=== PATIENT | female | born 1940 | race Caucasian/White ===

== ENCOUNTER 2024-04-22 00:10 | Emergency (ER) | payer MEDICARE, SELFPAY ==
[2024-04-22] VITALS (77 sets, daily range): BP systolic 95–151; BP diastolic 32–89; PULSE 72–83; RESP 18; TEMP 36.6; O2SAT 86–99
--- NOTE | 2024-04-22 00:07 | W.ED.GENAD ---
Discharge Plan Disposition Patient Disposition: Transfer-Acute Inpatient Care Specific Acute Inpt Facility: [facility] Condition: Stable Discharge Details Clinical Impression: Closed right hip fracture Primary Care Provider: VanessaLocal ED Provider: Lorenzo Casanova and New Rx's Prescriptions: No Action Imbruvica 420 mg tablet 420 mg PO DAILY omeprazole 40 mg capsule,delayed release(DR/EC) 40 mg PO DAILY losartan-hydrochlorothiazide 100-12.5 mg tablet 1 tab PO DAILY levothyroxine 125 mcg capsule 125 mcg PO DAILY ferrous sulfate 27 mg iron tablet 65 mg PO DAILY HPI General Mode of arrival: EMS. Date/Time Provider Initiated Documentation: 04/22/24 00:19. Limitations to Documentation: no limitations. Information obtained by: patient and RN notes reviewed. HPI Narrative: Patient presents to ED status post fall with right hip pain. Patient reports going down just 2 steps, but she missed stepped and fell landing on her right hip. She had immediate pain and was unable to get up. She denies any syncope or fainting before the event. She denies striking her head or loss of consciousness. She has no neck pain, chest pain, shortness of breath, back pain. Only complaint is of right hip pain. She did receive fentanyl en route for her pain. Related Data Home Medications ?Medication ?Instructions ?Recorded ?Confirmed ferrous sulfate 27 mg iron tablet 65 mg PO DAILY 04/22/24 04/22/24 ibrutinib 420 mg tablet (Imbruvica) 420 mg PO DAILY 04/22/24 04/22/24 levothyroxine 125 mcg capsule 125 mcg PO DAILY 04/22/24 04/22/24 losartan 100 1 tab PO DAILY 04/22/24 04/22/24 mg-hydrochlorothiazide 12.5 mg tablet omeprazole 40 mg capsule,delayed 40 mg PO DAILY 04/22/24 04/22/24 release Allergies Allergy/AdvReac Type Severity Reaction Status Date / Time No Known Allergies Allergy Unverified 04/22/24 00:15 Review of Systems Narrative: Per HPI Exam Narrative Exam Narrative: Const: WDWN elderly female in NAD. VS per triage. HEENT: NC/AT. Normal facial exam. Neck: Supple. Trachea midline. No midline tenderness. Lungs: Normal respiratory effort. Lungs are clear. No chest wall tenderness. Cor: RRR with loud murmur. Good radial pulses. GI: Soft/ND/NT. Neuro: A+O x 3. Normal speech, mentation. Cranial nerves II - XII grossly intact. No gross motor or sensory deficit. Ext: No C/C/E. RLE is shortened with extreme pain in hip with any movement. NVI distal. LLE normal. Pelvis stable. Medical Decision Making Patient presenting to ED status post fall with right hip pain. Patient is visiting from [place]. She denies any presyncope or syncope. She denies any head injury. She does report severe for which they are considering TAVR. IV is in place and she has received fentanyl en route. Clinically appears to have a right hip fracture which is isolated. Will continue pain control. Laboratory studies and x-rays ordered. Laboratory studies show a white count of 22.5 in keeping with her history of CLL. Her hemoglobin is low normal at 11.2. Chemistries unremarkable other than evidence of renal insufficiency with a BUN of 45 and a creatinine 1.7. I have no baseline for comparison. Liver function is normal. X-rays read by me confirm comminuted intertrochanteric/subtrochanteric fracture on the right. 1 view chest x-ray suggest some increased interstitial markings. Again no old for comparison. Saturations on room air remain normal. Her EKG is sinus rhythm with left axis deviation and some lateral ST changes. These findings likely related to her severe . Discussed x-ray findings with patient and family. They did inquire about transport back home to [place]. Unfortunately, this is very expensive as it would be private pay. Therefore, recommendation for management at [facility] or [facility] was made. There is no orthopedic coverage tonight or the rest of the weekend here. Will begin the process of arranging for transfer. Will place patient on 100 mL/h of saline. Will continue to control pain as necessary. Moe catheter placed for comfort. [facility] is currently at capacity and cannot accept the patient. [facility] has accepted patient to the ED by Dr. Turner. Patient will be transferred by ambulance this morning. Patient and family updated. Imaging Data Radiologic Study: Attestation: I personally reviewed and interpreted this imaging study as follows: Imaging: X-Ray My impression: see [facility] Lab Data Lab results reviewed: Yes I reviewed the patient's lab results. ECG Data Attestation: I personally reviewed and interpreted this ECG (s) as follows: Prior ECG tracings: not available for review Interpretation: see EKG/MDM PFS All Active Problems (Updated 04/22/24 @ 04:48 by Lorenzo Casanova MD) Closed right hip fracture (Acute) Medical History CLL (chronic lymphocytic leukemia) Hypothyroid HTN (hypertension) Aortic stenosis Surgical History Hx of tonsillectomy Social History Smoking/Tobacco Use Status: Never Smoking risk assessment performed?: Yes Alcohol Intake: never Drug use: Never Substance use type: does not use
--- NOTE | 2024-04-22 00:15 | DI.RAD_ITS ---
Exam(s) XR FEMUR RT XR HIP RT COMPLETE AP PELVIS EXAM: XR HIP RT COMPLETE AP PELVIS and XR femur RT CLINICAL HISTORY: fall/hip pain. TECHNIQUE: 2D digital imaging was performed of the right femur and hip. Seven images were obtained. AP pelvis and lateral right hip views were obtained. COMPARISON: There are no priors for comparison. FINDINGS: BONES: There is an acute comminuted intertrochanteric fracture of the right femur. There is loss of the normal femoral neck angle. The distal femur is intact. No bony destructive lesion is seen. JOINTS: No dislocation present. The sacroiliac joints are intact as is the symphysis pubis. SOFT TISSUE: Vascular calcifications are present. IMPRESSION: 1. There is an acute comminuted intertrochanteric fracture of the right femur as described above. 2. No evidence of a fracture of the distal femur. 3. No dislocation. DATA REPOSITORY: RADIATION DOSE DELIVERED:
--- NOTE | 2024-04-22 00:15 | RT.EKG_ITS ---
APPROVED REPORT Exam: Resting ECG Reason for Exam: pre-op hip Patient Location: E HR:81 bpm ECG Measurements Heart Rate 81 AXIS ME 191 P 68 QRSd 80 QRS -39 QT 411 T 108 QTc 478 Conclusion Sinus rhythm...normal P axis, V-rate 60- 99 Atrial premature complex...SV complex w/ short R-R interval Left axis deviation...QRS axis (-30,-90) Abnormal T, consider ischemia, lateral leads...T <-0.20mV, I aVL V5 V6 I have reviewed and interpreted ECG and agree with software generated interpretation.
--- NOTE | 2024-04-22 00:15 | DI.RAD_ITS ---
Exam(s) XR CHEST 1V IN DI DEPT EXAM: XR CHEST 1V IN DI DEPT CLINICAL HISTORY: fall/trauma TECHNIQUE: 2D digital imaging was performed of the chest. One image was obtained. An AP view was ob tained. COMPARISON: No exams were available for comparison FINDINGS: MEDIASTINUM: Normal. HEART: Cardiomegaly PULMONARY VASCULATURE: Mild prominence of the pulmonary vasculature. LUNGS: No focal consolidating infiltrates. PLEURAL SPACE: No pleural effusion or pneumothorax. BONE:Within normal limits for the patient's age. OTHER FINDINGS:Normal. IMPRESSION: Mild cardiomegaly. Pulmonary venous congestion. DATA REPOSITORY: RADIATION DOSE DELIVERED:
[2024-04-22] MEDS: MORPHine 10 MG/ML VIAL 4 MG IVP ×6 (00:48→07:32)
[2024-04-22] MEDS: Ondansetron 4 MG/2 ML VIAL IVP ×2 (00:49→07:30)
[2024-04-22 01:20] LABS: HCT 34.7 % (36.0-46.0); HGB 11.2 g/dL (11.2-15.7); MCH 29.3 pg (27.0-33.0); MCHC 32.3 % (32.0-36.0); MCV 91 fL (80-95); MPV 11.4 fL (8.0-11.0); Platelet Count 323 10^3/uL (130-400); RBC 3.82 10^6/uL (3.93-5.22); RDW 14.6 % (11.7-14.6); RDW-SD 48.6 fL; WBC 22.48 10^3/uL (4.4-10.8)
[2024-04-22 01:46] LABS: ALT 17 U/L (14-59); AST 25 U/L (15-37); Albumin 3.4 g/dL (3.4-5.0); Alkaline Phosphatase 76 U/L (46-116); Anion Gap 8.8 mmol/L (3-11); BUN 45 mg/dL (7-18); Bilirubin, Total 0.83 mg/dL (0.2-1.0); CO2 22.2 mmol/L (21.0-32.0); CREATININE 1.7 mg/dL (0.55-1.02); Chloride 102 mmol/L (98-107); Estimated GFR 29.21 (mL/min/1.73m2); Glucose 111 mg/dL (74-106); Potassium 4.1 mmol/L (3.5-5.1); Sodium 133 mmol/L (136-145); Total Protein 8.2 g/dL (6.4-8.2)
--- NOTE | 2024-04-22 02:23 | DI.VRAD_ITS ---
PROCEDURE INFORMATION: Exam: XR Right Femur Exam date and time: 04/22/2024 1:06 AM Age: 83 years old Clinical indication: Injury or trauma; Blunt trauma; Thigh or upper leg; Right; Injury details: Fall/trauma TECHNIQUE: Imaging protocol: Radiologic exam of the right femur. Views: 2 views. COMPARISON: CR XR HIP RT COMPLETE AP PELVIS 04/22/2024 1:05 AM FINDINGS: Bones/joints: Acute comminuted intertrochanteric femur fracture. Soft tissues: Unremarkable. IMPRESSION: Acute comminuted intertrochanteric femur fracture. Dictated and Authenticated by: Kwaku Nunez MD. Ordering:PAM Ventura MD
--- NOTE | 2024-04-22 02:24 | DI.VRAD_ITS ---
PROCEDURE INFORMATION: Exam: XR Chest Exam date and time: 04/22/2024 1:21 AM Age: 83 years old Clinical indication: Injury or trauma; Blunt trauma (contusions or hematomas); Injury details: Fall/trauma TECHNIQUE: Imaging protocol: Radiologic exam of the chest. Views: 1 view. COMPARISON: No relevant prior studies available. FINDINGS: Lungs: Mild diffuse prominence/indistinctness of the pulmonary vascular interstitial suggest hydrostatic interstitial pulmonary edema/CHF. No focal airspace opacity. Pleural spaces: Unremarkable. No pleural effusion. No pneumothorax. Heart/Mediastinum: Unremarkable. No cardiomegaly. Bones/joints: Unremarkable. IMPRESSION: Mild diffuse prominence/indistinctness of the pulmonary vascular interstitial suggest hydrostatic interstitial pulmonary edema/CHF. Dictated and Authenticated by: Kwaku Nunez MD. Ordering:PAM Ventura MD
--- NOTE | 2024-04-22 02:26 | DI.VRAD_ITS ---
PROCEDURE INFORMATION: Exam: XR Right Hip Exam date and time: 04/22/2024 1:05 AM Age: 83 years old Clinical indication: Injury or trauma; Blunt trauma (contusions or hematomas); Right; Hip; Injury details: Fall/trauma TECHNIQUE: Imaging protocol: Radiologic exam of the right hip. Views: 2 or 3 views hip with pelvis when performed. COMPARISON: No relevant prior studies available. FINDINGS: Bones/joints: Comminuted intratrochanteric right femur fracture. Soft tissues: Unremarkable. IMPRESSION: Comminuted intratrochanteric right femur fracture. Dictated and Authenticated by: Kwaku Nunez MD. Ordering:PAM Ventura MD
[2024-04-22] MEDS: ACETAMINOPHEN 1,000 MG/100 ML BTL 400 MG IVPB (03:31)
--- OUTSIDE RECORDS SUMMARY | 2024-04-22 03:58 | XMS_ITS | Clinical Summary ---
Author Organization [facility] Address [address] [place] [id number] Care Team Providers Care Billing Machine Operator Name Role Phone César Lantigua MD Primary Care Provider [phone] Allergies No known active allergies Medications Medication Sig Dispensed Refills Start Date End Date Status IMBRUVICA 420 mg tablet Take 420 mg by mouth daily 0 03/05/2022 Active levothyroxine (SYNTHROID) 112 mcg tablet Take by mouth daily 0 Activ e losartan-hydroCHLOROt hiazide (HYZAAR) 100-12.5 mg tablet Take 1 tablet by mouth daily 0 03/18/[address] (PriLOSEC) 40 mg capsule Take 40 mg by mouth daily before breakfast 0 Active ferrous sulfate 325 (65 FE) MG tablet Take 325 mg by mouth daily with breakfast 0 Active VITAMIN D 1 DAY Take 1 capsule by mouth daily 0 Active Social History Tobacco Use Types Packs/Day Years Used Date Smoking Tobacco: Former Smokeless Tobacco: Never Comments:smoked lightly 60 y ears ago Alcohol Use Standard Drinks/Week Comments Yes 0 (1 standard drink = 0.6 oz pur e alcohol) occational Sex and Gender Information Value Date Recorded Sex Assigned at Not on file Gender Identity Not on file Sexual Orientation Not on file Last Filed Vital Signs Vital Sign Reading Time Taken Comments Blood Pressure 96/53 09/23/2022 3:00 PM EST Pulse 84 09/23/2022 3:00 PM EST Temperature 36.5 ??C (97.7 ??F) 09/23/2022 3:00 PM ES T Respiratory Rate 18 03/23/2022 9:07 AM EDT Oxygen Saturation - - Inhaled Oxygen Concentration - - Weight 55.2 kg (121 lb 12.8 oz) 03/23/2022 9:07 AM EDT Height 157.5 cm (5' 2) 03/23/2022 9:07 AM EDT Body Mass Index 22.28 03/23/2022 9:07 AM EDT Plan of Treatment Health Maintenance Due Date Last Done Comments Medicare Annual Wellness Visit 1938 [employer] ANNUAL DEPRESSION SCREENING 1950 [employer] BLOOD PRESSURE 140/ 90 OR UNDER 1956 [employer] TOBACCO CESSATION COUNSELING 1956 Fall Risk Screening 1956 [employer] ACCESS TO PREVENTIVE/AMBULATORY VISIT 1958 Shingrix Vaccine (#1) 1988 RSV Vaccine Needed (1 - 1-do se 60+ series) 1998 [employer] FALL RISK SCREENING 12/29/2003 PNEUMOCOCCAL VACCINE AGE 65+ (1 of 1 - PCV) 12/29/2003 COLOGUARD 2014 FIT (Fecal Immunochemical Test) 2014 FOBT 2014 SIGMOIDOSCOPY 2014 INFLUENZA VACCINE 02/24/2024 COVID VACCINE ( season) 2024 12/15/2021, 04/03/2021, 09/14/2020, Additional history exists BREAST CANCER SCREENING Discontinued COLONOSCOPY Discontinued COLORECTAL CANCER SCREENING Discontinued Cervical Cancer Discontinued Goals Goal Patient Goal Type Associated Problems Recent Progress Patient-Stated? Author Infusion - Potential for Injury/Reaction Infusion On track( 023 3:19 PM EST) No Bre Louise, RN Note: Goal: Free from treatment reactions Interventions: Baseline assessment , Baseline vital signs & as needed, and Assess for reaction Care Teams Billing Machine Operator Relationship Specialty Start Date End Date César Lantigua MD [address] [place] [address] PCP - General Family Medicine 03/20/22
--- OUTSIDE RECORDS SUMMARY | 2024-04-22 03:58 | XMS_ITS | Encounter Summary ---
Author Organization [facility] Address [address] [place] [address] Care Team Providers Care Technical Business Analyst Name Role Phone César Lantigua MD Primary Care Provider [phone] Reason for Visit * Reason Comments Blood Transfusion Encounter Details Date Type Department Care Team (Latest Contact Info) Description 09/23/2022 8:52 AM EST - 09/23/2022 11:59 PM EST Hospital Encounter [facility] [address] [place] [address] Anemia, unspecified type [D64.9] Discharge Disposition: Home or Self Care Social History Tobacco Use Types Packs/Day Years Used Date Smoking Tobacco: Former Smokeless Tobacco: Never Comments:smoked lightly 60 y ears ago Alcohol Use Standard Drinks/Week Comments Yes 0 (1 standard drink = 0.6 oz pur e alcohol) occational Sex and Gender Information Value Date Recorded Sex Assigned at Not on file Gender Identity Not on file Sexual Orientation Not on file documented as of this encounter Last Filed Vital Signs Vital Sign Reading Time Taken Comments Blood Pressure 96/53 09/23/2022 3:00 PM EST Pulse 84 09/23/2022 3:00 PM EST Temperature 36.5 ??C (97.7 ??F) 09/23/2022 3:00 PM ES T Respiratory Rate - - Oxygen Saturation - - Inhaled Oxygen Concentration - - Weight - - Height - - Body Mass Index - - documented in this encounter Discharge Instructions * Attachments The following attachments cannot be sent through Care Everywhere. * Blood Transfusion ([place] Citizen) documented in this encounter Medications at Time of Discharge Medication Sig Dispensed Refills Start Date End Date ferrous sulfate 325 (65 FE) MG tablet Take 325 mg by mouth daily with breakfast 0 IMBRUVICA 420 mg tablet Take 420 mg by mouth daily 0 03/05/2022 levothyroxine (SYNTHROID) 112 mcg tablet Take by mouth daily 0 losartan-hydroCHLOROthia zide (HYZAAR) 100-12.5 mg tablet Take 1 tablet by mouth daily 0 03/18/[address] (PriLOSEC) 40 mg capsule Take 40 mg by mouth daily before breakfast 0 VITAMIN D 1 DAY Take 1 capsule by mouth daily 0 documented as of this encounter Progress Notes * Christopher Moses RN - 09/23/2022 9:00 AM EST Reason for Visit: Blood Transfusion Vitals: 09/23/22 1001 09/23/22 1016 09/23/22 1230 09/23/22 1248 BP: 93/48 93/51 93/49 93/49 Temp: 36.6 ??C (97.8 ??F) 36.6 ??C (97.8 ??F) 37 ??C (98.6 ??F) 37 ??C (98.6 ??F) TempSrc: Temporal Pulse: 68 68 75 75 Pulse Source: Monitor Heart Rate: 68 68 75 75 Heart Rate Source: Monitor 09/23/22 1303 09/23/22 1500 BP: 125/68 96/53 Temp: 36.9 ??C (98.5 ??F) 36.5 ??C (97.7 ??F) TempSrc: Pulse: 83 84 Pulse Source: Heart Rate: 83 84 Heart Rate Source: Medications Given - No data to display Infusion Visit Type: Blood Transfusion - Patient tolerated transfusion well. Instructed to call MD if any problems. - Blood consent obtained: Yes - End volume documented: Yes - Transfusion marked complete: Yes Treatment tolerated: Yes Chair area free from clutter: Yes Chair in upright position: Yes Discharge to: Self Discharged via: Ambulatory . documented in this encounter Plan of Treatment Not on file documented as of this encounter Goals Goal Patient Goal Type Associated Problems Recent Progress Patient-Stated? Author Infusion - Potential for Injury/Reaction Infusion On track( 023 3:19 PM EST) No Bre Louise RN Note: Goal: Free from treatment reactions Interventions: Baseline assessment , Baseline vital signs & as needed, and Assess for reaction documented as of this encounter Procedures Procedure Name Priority Date/Time Associated Diagnosis Comments TRANSFUSE RED BLOOD CELLS Routine 09/23/2022 12:48 PM EST Anemia, unspecified type TRANSFUSE RED BLOOD CELLS Routine 09/23/2022 10:01 AM EST Anemia, unspecified type documented in this encounter Results * Transfuse RBC (09/23/2022 3:32 PM EST) Elaina Nguyen MD BLOOD TRANSFUSION OR DERABLES Performing Organization Address City/[facility] Co de Phone Number [employer] * Transfuse RBC (09/23/2022 3:32 PM EST) Elaina Nguyen MD BLOOD TRANSFUSION OR DERABLES * Transfuse RBC (09/23/2022 3:27 PM EST) Elaina Nguyen MD BLOOD TRANSFUSION OR DERABLES Performing Organization Address City/[facility]/ZIP Co de Phone Number [employer]ithila[employer]at [employer] [employer] documented in this encounter Visit Diagnoses Diagnosis Anemia, unspecified type documented in this encounter Care Teams Technical Business Analyst Relationship Specialty Start Date End Date César Lantigua MD [address] [place] [address] PCP - General Family Medicine 03/20/22 documented as of this encounter
--- OUTSIDE RECORDS SUMMARY | 2024-04-22 03:59 | XMS_ITS | Encounter Summary ---
Author Organization [facility] Address [address] [place] [address] Care Team Providers Care High Speed Warper Tender Name Role Phone César Lantigua MD Primary Care Provider [phone] Encounter Details Date Type Department Care Team (Late st Contact Info) Description 03/20/2022 Orders Only [facility] [address] [place] [id number] Elaina Nguyen MD [address] [place] [address] Anemia, unspecified type (Primary Dx) [D64.9] Social History Tobacco Use Types Packs/Day Years Used Date Smoking Tobacco: Never Assessed Sex and Gender Information Value Date Recorded Sex Assigned at Not on file Gender Identity Not on file Sexual Orientation Not on file documented as of this encounter Plan of Treatment Pending Results Name Type Priority Associated Diagnoses Date /Time Prepare red blood cells Blood Bank Routine Anemia, unspecified type 03/20/2022 3:01 PM EDT documented as of this encounter Goals Goal Patient Goal Type Associated Problems Recent Progress Patient-Stated? Author Infusion - Potential for Injury/Reaction Infusion On track( 023 3:19 PM EST) No Bre Louise, RN Note: Goal: Free from treatment reactions Interventions: Baseline assessment , Baseline vital signs & as needed, and Assess for reaction documented as of this encounter Results * Type and screen (03/20/2022 3:01 PM EDT) ABO Typing A 03/20/2022 4:19 PM EDT [facility] RH Type POS 03/20/2022 4:19 PM EDT [facility] Antibody Screen NEG 4:19 PM EDT [facility] Type & Screen Expiration 03/23/2022 23:59 03/20/2022 4:19 PM EDT [facility] Blood Non-Lab Draw / Unknown 03/20/2022 3:01 PM EDT 03/20/2022 3:12 PM EDT Comment:Add'l Desc: Elaina Nguyen MD BLOOD BANK TEST SWAPNA BOWLES [facility] [address] [place] [address], [facility] [address] [place] [address] documented in this encounter Visit Diagnoses Diagnosis Anemia, unspecified type- Primary documented in this encounter Care Teams High Speed Warper Tender Relationship Specialty Start Date End Date César Lantigua MD [address] [place] [address] PCP - General Family Medicine 03/20/22 documented as of this encounter
--- OUTSIDE RECORDS SUMMARY | 2024-04-22 03:59 | XMS_ITS ---
Author Organization [facility] Address [address] [place] [address] Care Team Providers Care Nuclear Security Officer Name Role Phone Donovan Manuel Unavailable [phone] ANANYA DELGADO, DONOVAN Unavailable Unavailable Sara Merino Unavailable REASON FOR VISIT PT [facility] MCR L ARM - REF BY DR. MANUEL SOCIAL HISTORY Sex Assigned At : Social History Observation Description Sex Assigned At Female Encounters Encounter Location Date Provider Diagnosis [facility] [employer] - [address] [place] [address] 04/07/2024 Sara Merino PLAN OF TREATMENT Next Appt Details Provider Name:Donovan Manuel, 02:30:00 PM, [address] [facility] [facility] [address], [place], [address],
--- OUTSIDE RECORDS SUMMARY | 2024-04-22 03:59 | XMS_ITS | Encounter Summary ---
Author Organization [facility] Address [address] [place] [address] Care Team Providers Care Concrete Curer Name Role Phone César Lantigua MD Primary Care Provider [phone] Reason for Visit * Reason Comments Blood Transfusion Encounter Details Date Type Department Care Team (Latest Contact Info) Description 03/23/2022 8:54 AM EDT - 03/23/2022 11:59 PM EDT Hospital Encounter [facility] [address] [place] [phone] Anemia, unspecified type (Primary Dx) [D64.9] Discharge Disposition: Home or Self Care [...] Sign Reading Time Taken Comments Blood Pressure 100/61 03/23/2022 12:26 PM EDT Pulse 75 03/23/2022 12:26 PM EDT Temperature 36.2 ??C (97.2 ??F) 03/23/2022 1 2:26 PM EDT Respiratory Rate 18 03/23/2022 9:07 AM EDT Oxygen Saturation - - Inhaled Oxygen Concentration - - Weight 55.2 kg (121 lb 12.8 oz) 03/23/2022 9:07 AM EDT Height 157.5 cm (5' 2) 03/23/2022 9:07 AM EDT Body Mass Index 22.28 03/23/2022 9:07 AM EDT documented in this encounter Discharge Instructions * Patient Instructions* Bre Louise RN - 03/23/2022 9:00 AM EDT POST BLOOD AND BLOOD PRODUCTS ADMINISTRATION, EDUCATION AND PATIENT INSTRUCTION SHEET PURPOSE: To provide you and your family with guidelines about when to call your physician after having received blood or a blood product. The transfusion you received today was: PACKED RED BLOOD CELLS NOTIFY YOUR PHYSICIAN IF YOU EXPERIENCE THE FOLLOWING SYMPTOMS: POSSIBLE ALLERGIC REACTION: rash, redness of skin, itching or signs of SEVERE reaction such as feeling your throat closing or unable to breathe. FEVER: shaking chills and/or fever greater than 100.4??F. FLUID OVERLOAD: Tightness in chest, dry cough, excess fluid in lungs or wheezing sound when breathing. LATE REACTION: May occur up to one week after transfusion: jaundice (yellowing of skin and white ofeyes), fever, blood in urine, unexplained anemia. OTHER: You may resume a normal diet and activity as tolerated. If you have any questions, please call your physician. documented in this encounter Medications at Time [...] as of this encounter Progress Notes * Bre Louise RN - 03/23/2022 9:00 AM EDT Reason for Visit: Blood Transfusion Vitals: 03/23/22 0907 03/23/22 0949 03/23/22 1004 03/23/22 1226 BP: 126/83 124/82 113/63 100/61 Temp: 36.2 ??C (97.2 ??F) 36.5 ??C (97.7 ??F) 36.4 ??C (97.5 ??F) 36.2 ??C (97.2 ??F) TempSrc: Temporal Resp: 18 Pulse: 72 72 72 75 Height: 157.5 cm (62) Weight: 55.2 kg (121 lb 12.8 oz) Heart Rate: 72 72 72 75 BMI (CALCULATED): 22.3 BSA (Calculated - sq m): 1.55 sq meters Medications Given - No data to display Infusion Visit Type: Blood Transfusion - Patient tolerated transfusion well. Instructed to call MD if any problems. - Blood consent obtained: Yes - End volume documented: Yes - Transfusion marked complete: Yes Treatment tolerated: Yes Chair area free from clutter: Yes Chair in upright position: Yes Discharge to: Family Discharged via: Ambulatory . documented in this [...] Diagnosis Comments TRANSFUSE RED BLOOD CELLS Routine 03/23/2022 9:49 AM EDT Anemia, unspecified type documented in this encounter Results * Transfuse RBC (03/23/2022 12:28 PM EDT) Elaina Nguyen MD BLOOD TRANSFUSION OR DERABLES [facility] * Transfuse RBC (03/23/2022 12:28 PM EDT) Elaina Nguyen MD BLOOD TRANSFUSION OR DERABLES documented in this encounter Visit Diagnoses Diagnosis Anemia, unspecified type- Primary documented in this encounter Care Teams Concrete Curer Relationship Specialty Start Date End Date César Lantigua MD [address] [place] [address] PCP - General Family Medicine 03/20/22 documented as of this encounter
--- OUTSIDE RECORDS SUMMARY | 2024-04-22 03:59 | XMS_ITS | Encounter Summary ---
Author Organization [facility] Address [address] [place] [address] Care Team Providers Care Regrind Mill Operator Name Role Phone César Lantigua MD Primary Care Provider [phone] Reason for Visit * Reason Comments Other Type and screen Encounter Details Date Type Department Care Team (Latest Contact Info) Description 09/21/2022 12:02 PM EST - 09/21/2022 11:59 PM EST Hospital Encounter [facility] [address] [place] [phone] Anemia, unspecified type [D64.9] Discharge Disposition: Home [...] Sign Reading Time Taken Comments Blood Pressure - - Pulse - - Temperature 36.2 ??C (97.2 ??F) 09/21/2022 12:[address] Respiratory Rate - - Oxygen Saturation - - Inhaled Oxygen Concentration - - Weight - - Height - - Body Mass Index - - documented in this encounter Medications at Time [...] as of this encounter Progress Notes * John Hanson RN - 09/21/2022 12:15 PM EST Reason for Visit: Other (Type and screen) Vitals: 09/21/22 1237 Temp: 36.2 ??C (97.2 ??F) TempSrc: Temporal Medications Given - No data to display Infusion Visit Type: Pt arrived ambulatory for blood work. Blood sample obtained via butterfly needle in left A/C. Gauze and coban applied. Treatment tolerated: Yes Chair area free from clutter: Yes Chair in upright position: Yes Discharge to: Self Discharged via: Ambulatory . documented in this encounter Plan of Treatment Pending Results Name Type Priority Associated Diagnoses Date /Time Prepare red blood cells Blood Bank STAT 09/21/2022 12:30 PM EST documented as of this encounter Goals Goal [...] Procedure Name Priority Date/Time Associated Diagnosis Comments PREPARE RED BLOOD CELLS STAT 09/21/2022 12:30 PM EST TYPE AND SCREEN STAT 09/21/2022 12:30 PM EST Anemia, unspecified type documented in this encounter Results * Type and screen (09/21/2022 12:30 PM EST) ABO Typing A 09/21/2022 1:30 PM EST [facility] Type POS 09/21/2022 1:30 PM EST [facility] Antibody Screen NEG 1:30 PM EST [facility] Type & Screen Expiration 09/24/2022 23:59 09/21/2022 1:30 PM EST [facility] Blood Non-Lab Draw / Unknown 09/21/2022 12:30 PM EST 09/21/2022 12:40 PM EST Comment:Add'l Desc: Elaina Nguyen MD BLOOD BANK TEST SWAPNA BOWLES [facility] Organization Address City/State/ZIP Co de Phone Number [facility] [address] [place] [address], [facility] [address] [place] [address] documented in this encounter Visit Diagnoses Diagnosis Anemia, unspecified type documented in this encounter Care Teams Regrind Mill Operator Relationship Specialty Start Date End Date César Lantigua MD [address] [place] [address] PCP - General Family Medicine 03/20/22 documented as of this encounter
--- OUTSIDE RECORDS SUMMARY | 2024-04-22 03:59 | XMS_ITS ---
Author Organization [facility] Address [address] [place] [id number] Care Team Providers Care Jig Fitter Name Role Phone Lawson Lantigua Unavailable [phone] Jose Gao DPM Unavailable Unavailable Migration, Provider Unavailable Unavailable Allergies No Known Allergies REASON FOR VISIT EMR-Devin Medications Medication SIG (Take, Route, Frequency, Duration) Notes Start Date End Date Status losartan-hydrochlorot hiazide 100-12.5 mg oral for 90 *Reorder from [facility] for eRx and Interaction Alerts* 04/16/2021 Active Vitamin D3 10 MCG (400 UNIT) Oral for 0 01/28/2022 Active Multivitamin - Oral for 0 01/28/2022 Act martita Imbruvica 420 MG Oral for 0 01/28/2022 A ctive Levothyroxine 125 mcg oral for 90 *Reorder f rom [facility] for eRx and Interaction Alerts* 02/25/2021 Active Omeprazole 40 mg oral for 90 *Pick strength- form from [facility] for eRX* 02/13/2021 Active Encounters Encounter Location Date Provider Diagnosis [facility] [address] [place] [phone] 01/31/2023 Provider Migration Plan Of Treatment No Information Progress Notes * KONRADGALDINO BUTLERCOURTNEYDOB:[birth year] (83 yo F)Acc No.[id number]:01/31/2023 Patient:?ALEX TERRAZAS :1940???Age:82 Y???Sex:Female Address:[address] [place] [address] Subjective: * Chief Complaints: * ???EMR-Devin * Medical History:? * Surgical History:? * Hospitalization/Major Diagno stic Procedure:? * Medications:?TakingOmeprazol e 40 mg capsule,delayed release(DR/EC) oral , Notes to Pharmacist: *Pick strength-form from [facility] for eRX*Vitamin D3 10 MCG (400 UNIT) Tablet Oral Multivitamin - Tablet Oral Imbruvica 420 MG Tablet Oral Levothyroxine 125 mcg tablet oral , Notes to Pharmacist: *Reorder from [facility] for eRx and Interaction Alerts*losartan-hydrochlorothiazide 100-12.5 mg tablet oral , Notes to Pharmacist: *Reorder from [facility] for eRx and Interaction Alerts*Taking Omeprazole 40 mg capsule,delayed release(DR/EC) oral , Notes to Pharmacist: *Pick strength-form from [facility] for eRX*Taking Vitamin D3 10 MCG (400 UNIT) Tablet Oral Taking Multivitamin - Tablet Oral Taking Imbruvica 420 MG Tablet Oral Taking Levothyroxine 125 mcg tablet oral , Notes to Pharmacist: *Reorder from [facility] for eRx and Interaction Alerts*Taking losartan-hydrochlorothiazide 100-12.5 mg tablet oral , Notes to Pharmacist: *Reorder from [facility] for eRx and Interaction Alerts* * Allergies:?N.K.D.A.no[Allerg ies Verified] Objective: * Vitals:? * Physical Examination:? Assessment: Plan: * Treatment: * Procedure Codes:? * * Date:?
--- OUTSIDE RECORDS SUMMARY | 2024-04-22 03:59 | XMS_ITS | Encounter Summary ---
Author Organization [facility] Address [address] [place] [address] Care Team Providers Care Paint Spraying Machine Operator Helper Name Role Phone César Lantigua MD Primary Care Provider [phone] Encounter Details Date Type Department Care Team (Late st Contact Info) Description 09/21/2022 Orders Only [facility] [address] [place] [phone] Elaina Nguyen MD [address] [place] [address] Anemia, unspecified type (Primary Dx) [...] as of this encounter Plan of Treatment Not on [...] ABO Typing A 09/21/2022 1:30 PM EST [facility] Type POS 09/21/2022 1:30 PM EST [facility] Antibody Screen NEG 1:30 PM EST [facility] Type & Screen Expiration 09/24/2022 23:59 09/21/2022 1:30 PM EST [facility] Blood Non-Lab Draw / Unknown 09/21/2022 12:30 PM EST 09/21/2022 12:40 PM EST Comment:Add'l Desc: Elaina Nguyen MD BLOOD BANK TEST [facility] [address] [place] [address], [facility] [address] [place] [address] documented in this encounter Visit Diagnoses Diagnosis Anemia, unspecified type- Primary documented in this encounter Care Teams Paint Spraying Machine Operator Helper Relationship Specialty Start Date End Date César Lantigua MD [address] [place] [address] PCP - General Family Medicine 03/20/22 documented as of this encounter
--- OUTSIDE RECORDS SUMMARY | 2024-04-22 03:59 | XMS_ITS | Encounter Summary ---
Author Organization [facility] Address [address] [place] [address] Care Team Providers Care Bologna Maker Name Role Phone César Lantigua MD Primary Care Provider [phone] Encounter Details Date Type Department Care Team (Late st Contact Info) Description 04/02/2022 Orders Only [facility] [id number] Elaina Nguyen MD [address] [place], [place] [phone] Social History Tobacco Use Types Packs/Day Years [...] for reaction documented as of this encounter Visit Diagnoses Not on filedocumented in this encounter Care Teams Bologna Maker Relationship Specialty Start Date End Date César Lantigua MD [address] [place] [address] PCP - General Family Medicine 03/20/22 documented as of this encounter
--- OUTSIDE RECORDS SUMMARY | 2024-04-22 03:59 | XMS_ITS | Patient Health Record ---
Author Organization [facility] Address [address] [place] [address] Care Team Providers Care Skin Piler Name Role Phone Donovan Hare Unavailable [phone] DONOVAN HARE MD Unavailable Unavailable Lorenzo De La Garza Unavailable [phone] Edilson Velasquez Unavailable [phone] Olga Ferro Unavailable Lissa Sellers Unavailable Alexander Silveira Unavailable [phone] Sara Merino Unavailable ALLERGIES No Known Allergies RESULTS Component Value Reference Range Notes X-Ray Exam: Shoulder/, LT/, minimum 2 views (20625) Reviewed date:11/18/2023 04:22:04 PM Interpretation: Performing Lab: Notes/Report: See Below For Report X-Ray Exam: Shoulder/, LT/, minimum 2 views (71204) X-Ray Exam: Shoulder/, LT/, minimum 2 views (72137) See Below For Report X-Ray Exam: Shoulde r/, LT/, minimum 2 views (52030) X-Ray Exam: Shoulder/, LT/, minimum 2 views (23095) Reviewed date:01/16/2024 09:48:57 PM Interpretation: Performing Lab: Notes/Report: See Below For Report X-Ray Exam: Shoulder/, LT/, minimum 2 views (57610) X-Ray Exam: Shoulder/, LT/, minimum 2 views (48782) See Below For Report X-Ray Exam: Shoulde r/, LT/, minimum 2 views (22525) X-Ray Exam: Shoulder/, LT/, minimum 2 views (35519) Reviewed date:12/23/2023 11:44:18 AM Interpretation: Performing Lab: Notes/Report: See Below For Report X-Ray Exam: Shoulder/, LT/, minimum 2 views (63044) X-Ray Exam: Shoulder/, LT/, minimum 2 views (25046) See Below For Report X-Ray Exam: Shoulde r/, LT/, minimum 2 views (93933) X-Ray Exam: Shoulder/, LT/, minimum 2 views (15227) Reviewed date:03/02/2024 02:56:58 PM Interpretation: Performing Lab: Notes/Report: See Below For Report X-Ray Exam: Shoulder/, LT/, minimum 2 views (05486) X-Ray Exam: Shoulder/, LT/, minimum 2 views (40590) See Below For Report X-Ray Exam: Shoulde r/, LT/, minimum 2 views (23064) REASON FOR REFERRAL Reason (start PT in 4 weeks December 22) passive and active ROM only as tolerated ... NO strengthening as tolerated 3 times a week for 6 weeks Diagnosis 1 Closed 2-part displa michelle fracture of surgical neck of left humerus with routine healing, subsequent encounter (S42.421D) Referral Organization [facility] [place] Referring Provider First Name Donovan Referring Provider Last Name Mar Referring Provider Speciality Orthopedic Surgery Referred Provider Specialty Physical The rapist General Notes meli Referral Priority Routine Reason PT General - Prescri ption (start PT in December 22) passive and active ROM only as tolerated ... NO strengthening as tolerated 3 times a week for 6 weeks Diagnosis 1 Closed 2-part displa michelle fracture of surgical neck of left humerus with routine healing, subsequent encounter (S42.818D) Referral Organization [facility] [place] Referring Provider First Name Donovan Referring Provider Last Name Mar Referring Provider Speciality Orthopedic Surgery Referred Organization [facility] [place] Referred Provider Lissa Sellers Referred Address [address] [place] [address],[place],[address],[place] Referred Provider Specialty Physical The rapist Referral Priority Routine Reason PT GENERAL - PRECERT REQUIRED 2023-12-31 SUBMITTED [employer] PT PRECERT [id number] PENDED DOS 12-24-23. SB 2024-01-11 SPOKE OLESYA @ [employer] REF:[id number]. PT PRECERT NOT REQUIRED. SB Referred Organization [facility] [place] Referred Provider Sara Merino Referred Address [address] [place] [address],[place], [place],[address],[place] Referred Provider Specialty Physical The rapist Referral Priority Routine Reason PT General - Prescri ption full rom exercises, modalities, strengthening 3 times a week for 6 weeks Diagnosis 1 Closed 2-part displa michelle fracture of surgical neck of left humerus with routine healing, subsequent encounter (S42.222D) Referral Organization [facility] [place] Referring Provider First Name Donovan Referring Provider Last Name Mar Referring Provider Speciality Orthopedic Surgery Referred Organization [facility] [place] Referred Provider Sara Merino Referred Address [address] [place] [address],[place], [place],[address],[place] Referred Provider Specialty Physical The rapist Referral Priority Routine Reason full rom exercises, modalities, strengthening 3 times a week for 6 weeks Diagnosis 1 Closed 2-part displa michelle fracture of surgical neck of left humerus with routine healing, subsequent encounter (S42.222D) Referral Organization [facility] [place] Referring Provider First Name Donovan Referring Provider Last Name Mar Referring Provider Speciality Orthopedic Surgery Referred Provider Specialty Physical The rapist General Notes meli Referral Priority Routine Reason PT General - Medicar e 10 Visits 10 VISITS Referral Organization [facility] [place] Referring Provider First Name Donovan Referring Provider Last Name Mar Referring Provider Speciality Orthopedic Surgery Referred Organization [facility] [place] Referred Provider Lissa Sellers Referred Address [address],[place],[address],[place] Referred Provider Specialty Physical The rapist Referral Priority Routine Reason PT General - POC 3 6 VISITS Referral Organization [facility] [place] Referring Provider First Name Donovan Referring Provider Last Name Mar Referring Provider Speciality Orthopedic Surgery Referred Organization [facility] [place] Referred Provider Lissa Sellers Referred Address [address],[place], [place],[address],[place] Referred Provider Specialty Physical The rapist Referral Priority Routine Reason PT General - Medicar e 10 Visits 10 VISITS Referred Organization [facility] [place] Referred Provider Lissa Sellers Referred Address [address] [place],[address],[place] Referred Provider Specialty Physical The rapist Referral Priority Routine Reason PT General - Prescri ption .Strengthening, stretching, ROM, modalities please continue tx for lt shoulder Referral Organization [facility] [place] Referring Provider First Name Donovan Referring Provider Last Name Mar Referring Provider Speciality Orthopedic Surgery Referred Organization [facility] [place] Referred Provider Sara Merino Referred Address [address] [place] [address],[place], [place],[address],[place] Referred Provider Specialty Physical The rapist Referral Priority Routine Reason PT General - Prescri ption Renew PT, 2-3x a week x 6 weeks, increase ROM, modalities, and light strengthening Referred Organization [facility] [place] Referred Provider Sara Merino Referred Address [address] [place] [address],[place], [place],[address],[place] Referred Provider Specialty Physical The rapist Referral Priority Routine Reason .Strengthening, stre tching, ROM, modalities please continue tx for lt shoulder Diagnosis 1 Pain in left shoulde r (M25.512) Referral Organization [facility] [place] Referring Provider First Name Donovan Referring Provider Last Name Mar Referring Provider Speciality Orthopedic Surgery Referred Provider Specialty Physical The rapist Referral Priority Routine Reason Renew PT, 2-3x a wee k x 6 weeks, increase ROM, modalities, and light strengthening Diagnosis 1 Closed 2-part displa michelle fracture of surgical neck of left humerus with routine healing, subsequent encounter (S42.222D) Referral Organization [facility] [place] Referring Provider First Name Donovan Referring Provider Last Name Mar Referring Provider Speciality Orthopedic Surgery Referred Provider Specialty Physical The rapist Referral Priority Routine Reason PT General - POC 3 6 VISITS Referred Organization [facility] [place] Referred Provider Sara Merino Referred Address [address] [place] [address],[place], [place],[address],[place] Referred Provider Specialty Physical The rapist Referral Priority Routine Reason PT General - Medicar e 10 Visits 10 VISITS Referred Organization [facility] [place] Referred Provider Sara Merino Referred Address [address] [place] [address] [place],[address],[place] Referred Provider Specialty Physical The rapist Referral Priority Routine MEDICATIONS Medication SIG (Take, Route, Frequency, Duration) Notes Start Date End Date Status Ibrutinib 420 MG 1 tablet Orally Once a day for 30 day(s) 11/18/2023 Active Levothyroxine Sodium 125 MCG 1 tablet in the morning on an empty stomach Orally Once a day for 30 day(s) 11/18/2023 Active Omeprazole 40 MG 1 capsule 30 minutes before morning meal Orally Once a day for 30 day(s) 11/18/2023 Active Losartan Potassium-HCTZ 100-12.5 MG 1 tablet Orally Once a day for 30 day(s) 11/18/2023 Active oxyCODONE-Acetaminophen 5-325 MG 1 tablet as needed Orally every 6 hrs 11/18/2023 Not-Taking SOCIAL HISTORY Tobacco Use: Social History Observation Description Date Details (start date - stop date) Never Smoker NA - NA Sex Assigned At : Social History Observation Description Sex Assigned At Female Tobacco Use/Smoking Question Answer Notes Are you a nonsmoker PROBLEMS Problem Type ICD Code Onset Dates Problem Status W/U Status Risk SNOMED Code Notes Problem Closed 2-part displaced fracture of surgical neck of left humerus with routine healing (S42.222D) Active confirmed Problem Closed displaced fracture of greater tuberosity of left humerus with routine healing, subsequent encounter (S42.252D) Active confirmed Problem Pain in left shoulder (M25.512) Active confirmed Shoulder joint pain ([id number]) VITAL SIGNS Height 62 in 03/02/2024 Weight 120 lbs 03/02/2024 BMI 21.95 kg/m2 03/02/2024 Encounters Encounter Location Date Provider Diagnosis [facility] [place] [address] [place] [address] 2023 Edilson Velasquez [facility] [place] [address] [place] [address] 12/31/2023 Sara Merino Closed 2-part displaced fracture of surgical neck of left humerus with routine healing S42.222D ; Closed displaced fracture of greater tuberosity of left humerus with routine healing, subsequent encounter S42.252D and Pain in left shoulder M25.512 [facility] - [place] [address] [place] [address] 12/29/2023 Alexander Silveira Closed 2-part displaced fracture of surgical neck of left humerus with routine healing S42.222D ; Closed displaced fracture of greater tuberosity of left humerus with routine healing, subsequent encounter S42.252D and Pain in left shoulder M25.512 [facility] [place] [address] [place] [address] 01/05/2024 Sara Angelique Closed 2-part displaced fracture of surgical neck of left humerus with routine healing S42.222D ; Closed displaced fracture of greater tuberosity of left humerus with routine healing, subsequent encounter S42.252D and Pain in left shoulder M25.512 [facility] [address] [place] [address] 01/12/2024 Edilson Velasquez [facility] - [place] [place] [address] 02/02/2024 Sara Angelique Closed 2-part displaced fracture of surgical neck of left humerus with routine healing S42.222D ; Closed displaced fracture of greater tuberosity of left humerus with routine healing, subsequent encounter S42.252D and Pain in left shoulder M25.512 [facility] [address] [place] [address] 02/18/2024 Sara Angelique [facility] [address] [place] [address] 02/23/2024 Sara Angelique [facility] [address] [place] [address] 02/25/2024 Sara Angelique [facility] [place] [address] [place] [address] 03/08/2024 Sara Angelique Closed 2-part displaced fracture of surgical neck of left humerus with routine healing S42.222D ; Closed displaced fracture of greater tuberosity of left humerus with routine healing, subsequent encounter S42.252D and Pain in left shoulder M25.512 [facility] [place] [address] [place], [place] [address] 03/10/2024 Sara Merino Closed 2-part displaced fracture of surgical neck of left humerus with routine healing S42.222D ; Closed displaced fracture of greater tuberosity of left humerus with routine healing, subsequent encounter S42.252D and Pain in left shoulder M25.512 [facility] [place] [address], [place] [address] 04/12/2024 Sara Merino Closed 2-part displaced fracture of surgical neck of left humerus with routine healing S42.222D ; Closed displaced fracture of greater tuberosity of left humerus with routine healing, subsequent encounter S42.252D and Pain in left shoulder M25.512 [facility] [place] [address] [place], [place] [address] 01/07/2024 Edilson Velasquez Closed 2-part displaced fracture of surgical neck of left humerus with routine healing S42.222D ; Closed displaced fracture of greater tuberosity of left humerus with routine healing, subsequent encounter S42.252D and Pain in left shoulder M25.512 [facility] [place] [address] [place], [place] [address] 01/14/2024 Edilson Velasquez Closed 2-part displaced fracture of surgical neck of left humerus with routine healing S42.222D ; Closed displaced fracture of greater tuberosity of left humerus with routine healing, subsequent encounter S42.252D and Pain in left shoulder M25.512 [facility] [place] [address] [place], [place] [address] 01/19/2024 Alexander Silveira Closed 2-part displaced fracture of surgical neck of left humerus with routine healing S42.222D ; Closed displaced fracture of greater tuberosity of left humerus with routine healing, subsequent encounter S42.252D and Pain in left shoulder M25.512 [facility] [place] [address] [place], [place] [address] 01/21/2024 Alexander Silveira Closed 2-part displaced fracture of surgical neck of left humerus with routine healing S42.222D ; Closed displaced fracture of greater tuberosity of left humerus with routine healing, subsequent encounter S42.252D and Pain in left shoulder M25.512 [facility] [address] [place] [address] 01/26/2024 Sara Angelique [facility] - [place] [address] [place] [address] 02/09/2024 Sara Angelique Closed 2-part displaced fracture of surgical neck of left humerus with routine healing S42.222D ; Closed displaced fracture of greater tuberosity of left humerus with routine healing, subsequent encounter S42.252D and Pain in left shoulder M25.512 [facility] - [place] [address] [place] [address] 02/11/2024 Sara Angelique Closed 2-part displaced fracture of surgical neck of left humerus with routine healing S42.222D ; Closed displaced fracture of greater tuberosity of left humerus with routine healing, subsequent encounter S42.252D and Pain in left shoulder M25.512 [facility] [place] [address] 02/16/2024 Saraclaudine Merino Closed 2-part displaced fracture of surgical neck of left humerus with routine healing S42.222D ; Closed displaced fracture of greater tuberosity of left humerus with routine healing, subsequent encounter S42.252D and Pain in left shoulder M25.512 [facility] [place] [address] [place] [address] 03/22/2024 Edilson Velasquez Closed 2-part displaced fracture of surgical neck of left humerus with routine healing S42.222D ; Closed displaced fracture of greater tuberosity of left humerus with routine healing, subsequent encounter S42.252D and Pain in left shoulder M25.512 [facility] [place] [address] 03/31/2024 Sara Angelique Closed 2-part displaced fracture of surgical neck of left humerus with routine healing S42.222D ; Closed displaced fracture of greater tuberosity of left humerus with routine healing, subsequent encounter S42.252D and Pain in left shoulder M25.512 [facility] - [place] [address] [place] [address] 04/05/2024 Sara Angelique Closed 2-part displaced fracture of surgical neck of left humerus with routine healing S42.222D ; Closed displaced fracture of greater tuberosity of left humerus with routine healing, subsequent encounter S42.252D and Pain in left shoulder M25.512 [facility] [address] [facility] [place] [address] 04/07/2024 Sara Angelique [facility] [place] [address] 04/14/2024 Sara Angelique Closed 2-part displaced fracture of surgical neck of left humerus with routine healing S42.222D ; Closed displaced fracture of greater tuberosity of left humerus with routine healing, subsequent encounter S42.252D and Pain in left shoulder M25.512 [facility] [address] [place] [address] 12/23/2023 Lissa Sellers [facility] [place] [address] 12/24/2023 Sara Angelique Closed 2-part displaced fracture of surgical neck of left humerus with routine healing S42.222D ; Closed displaced fracture of greater tuberosity of left humerus with routine healing, subsequent encounter S42.252D and Pain in left shoulder M25.512 [facility] [place] [address] 02/04/2024 Sara Angelique Closed 2-part displaced fracture of surgical neck of left humerus with routine healing S42.222D ; Closed displaced fracture of greater tuberosity of left humerus with routine healing, subsequent encounter S42.252D and Pain in left shoulder M25.512 [facility] [address] [place] [address] 03/24/2024 Olga Lacy [facility] [place] [address] [place] [address] 03/29/2024 Sara Merino Closed 2-part displaced fracture of surgical neck of left humerus with routine healing S42.222D ; Closed displaced fracture of greater tuberosity of left humerus with routine healing, subsequent encounter S42.252D and Pain in left shoulder M25.[address] [address] 11/25/2023 Donovan Mar Closed 2-part displaced fracture of surgical neck of left humerus with routine healing, subsequent encounter S42.222D and Closed displaced fracture of greater tuberosity of left humerus with routine healing, subsequent encounter S42.252D [address] [address] 12/23/2023 Donovan Mar Closed 2-part displaced fracture of surgical neck of left humerus with routine healing, subsequent encounter S42.222D and Closed displaced fracture of greater tuberosity of left humerus with routine healing, subsequent encounter S42.252D [address] [address] 02/24/2024 Donovan Mar [address] [address] 03/02/2024 Donovan Mar Closed 2-part displaced fracture of surgical neck of left humerus with routine healing, subsequent encounter S42.222D and Closed displaced fracture of greater tuberosity of left humerus with routine healing, subsequent encounter S42.252D [address] [address] 11/18/2023 Donovan Mar Closed 2-part displaced fracture of surgical neck of left humerus, initial encounter S42.222A and Closed displaced fracture of greater tuberosity of left humerus, initial encounter S42.252A [address] [address] 11/18/2023 Lorenzo De La Garza ASSESSMENTS Encounter Date Diagnosis Assessment Notes Treatment Notes Treatment Clinical Notes 12/31/2023 Closed 2-part displaced fracture of surgical neck of left humerus with routine healing (ICD-10 - S42.222D) 12/29/2023 Closed 2-part displaced fracture of surgical neck of left humerus with routine healing (ICD-10 - S42.222D) 01/05/2024 Closed 2-part displaced fracture of surgical neck of left humerus with routine healing (ICD-10 - S42.222D) 02/02/2024 Closed 2-part displaced fracture of surgical neck of left humerus with routine healing (ICD-10 - S42.222D) 03/08/2024 Closed 2-part displaced fracture of surgical neck of left humerus with routine healing (ICD-10 - S42.222D) 03/10/2024 Closed 2-part displaced fracture of surgical neck of left humerus with routine healing (ICD-10 - S42.222D) 04/12/2024 Closed 2-part displaced fracture of surgical neck of left humerus with routine healing (ICD-10 - S42.222D) 01/07/2024 Closed 2-part displaced fracture of surgical neck of left humerus with routine healing (ICD-10 - S42.222D) 01/14/2024 Closed 2-part displaced fracture of surgical neck of left humerus with routine healing (ICD-10 - S42.222D) 01/19/2024 Closed 2-part displaced fracture of surgical neck of left humerus with routine healing (ICD-10 - S42.222D) 01/21/2024 Closed 2-part displaced fracture of surgical neck of left humerus with routine healing (ICD-10 - S42.222D) 02/09/2024 Closed 2-part displaced fracture of surgical neck of left humerus with routine healing (ICD-10 - S42.222D) 02/11/2024 Closed 2-part displaced fracture of surgical neck of left humerus with routine healing (ICD-10 - S42.222D) 02/16/2024 Closed 2-part displaced fracture of surgical neck of left humerus with routine healing (ICD-10 - S42.222D) 03/22/2024 Closed 2-part displaced fracture of surgical neck of left humerus with routine healing (ICD-10 - S42.222D) 03/31/2024 Closed 2-part displaced fracture of surgical neck of left humerus with routine healing (ICD-10 - S42.222D) 04/05/2024 Closed 2-part displaced fracture of surgical neck of left humerus with routine healing (ICD-10 - S42.222D) 04/14/2024 Closed 2-part displaced fracture of surgical neck of left humerus with routine healing (ICD-10 - S42.222D) 12/24/2023 Closed displaced fracture of greater tuberosity of left humerus with routine healing, subsequent encounter (ICD-10 - S42.252D) 12/24/2023 Closed 2-part displaced fracture of surgical neck of left humerus with routine healing (ICD-10 - S42.222D) 02/04/2024 Closed 2-part displaced fracture of surgical neck of left humerus with routine healing (ICD-10 - S42.222D) 03/29/2024 Closed 2-part displaced fracture of surgical neck of left humerus with routine healing (ICD-10 - S42.222D) 11/25/2023 Closed 2-part displaced fracture of surgical neck of left humerus with routine healing, subsequent encounter (ICD-10 - S42.222D) - Closed fracture care initiated on 11/18/23 - s/p fall while walking dog on 11/13/23 and fell onto shoulder - xrays reveals impacted surgical neck fracture and mildly displaced greater tuberosity fracture - Continue sling x 4 weeks from injury - wrist and finger motion to help with edema - NWB LUE - PT ([place]) prescribed to begin in 3-4 weeks - tramadol prescribed for pain - Repeat xrays at follow up 11/25/2023 Closed displaced fracture of greater tuberosity of left humerus with routine healing, subsequent encounter (ICD-10 - S42.252D) - see above plan - Closed fracture care initiated on 11/18/23 12/23/2023 Closed 2-part displaced fracture of surgical neck of left humerus with routine healing, subsequent encounter (ICD-10 - S42.222D) - Closed fracture care initiated on 11/18/23 - s/p fall while walking dog on 11/13/23 and fell onto shoulder - prior xrays reveals impacted surgical neck fracture and mildly displaced greater tuberosity fracture - wrist and finger motion to help with edema - NWB LUE - PT ([place]eli) prescribed - HEP taught - Repeat xrays at follow up 03/02/2024 Closed 2-part displaced fracture of surgical neck of left humerus with routine healing, subsequent encounter (ICD-10 - S42.222D) - Closed fracture care initiated on 11/18/23 - s/p fall while walking dog on 11/13/23 and fell onto shoulder - prior xrays reveals impacted surgical neck fracture and mildly displaced greater tuberosity fracture - PT (Meli) renewed - continue HEP - no heavy lifting - Repeat xrays at follow up 11/18/2023 Closed 2-part displaced fracture of surgical neck of left humerus, initial encounter (ICD-10 - S42.222A) - Closed fracture care initiated on 11/18/23 - s/p fall while walking dog on 11/13/23 and fell onto shoulder - xrays reveals impacted surgical neck fracture and mildly displaced greater tuberosity fracture - plan for non-op management - Continue sling x 4 weeks - Rest, ice, elevation, tylenol prn pain - wrist and finger motion to help with edema - NWB LUE- Repeat xrays at follow up 11/18/2023 Closed displaced fracture of greater tuberosity of left humerus, initial encounter (ICD-10 - S42.252A) - Closed fracture care initiated on 11/18/23 - see above plan 12/31/2023 Closed displaced fracture of greater tuberosity of left humerus with routine healing, subsequent encounter (ICD-10 - S42.252D) 12/29/2023 Closed displaced fracture of greater tuberosity of left humerus with routine healing, subsequent encounter (ICD-10 - S42.252D) 01/05/2024 Closed displaced fracture of greater tuberosity of left humerus with routine healing, subsequent encounter (ICD-10 - S42.252D) 02/02/2024 Closed displaced fracture of greater tuberosity of left humerus with routine healing, subsequent encounter (ICD-10 - S42.252D) 03/08/2024 Closed displaced fracture of greater tuberosity of left humerus with routine healing, subsequent encounter (ICD-10 - S42.252D) 03/10/2024 Closed displaced fracture of greater tuberosity of left humerus with routine healing, subsequent encounter (ICD-10 - S42.252D) 04/12/2024 Closed displaced fracture of greater tuberosity of left humerus with routine healing, subsequent encounter (ICD-10 - S42.252D) 01/07/2024 Closed displaced fracture of greater tuberosity of left humerus with routine healing, subsequent encounter (ICD-10 - S42.252D) 01/14/2024 Closed displaced fracture of greater tuberosity of left humerus with routine healing, subsequent encounter (ICD-10 - S42.252D) 01/19/2024 Closed displaced fracture of greater tuberosity of left humerus with routine healing, subsequent encounter (ICD-10 - S42.252D) 01/21/2024 Closed displaced fracture of greater tuberosity of left humerus with routine healing, subsequent encounter (ICD-10 - S42.252D) 02/09/2024 Closed displaced fracture of greater tuberosity of left humerus with routine healing, subsequent encounter (ICD-10 - S42.252D) 02/11/2024 Closed displaced fracture of greater tuberosity of left humerus with routine healing, subsequent encounter (ICD-10 - S42.252D) 02/16/2024 Closed displaced fracture of greater tuberosity of left humerus with routine healing, subsequent encounter (ICD-10 - S42.252D) 03/22/2024 Closed displaced fracture of greater tuberosity of left humerus with routine healing, subsequent encounter (ICD-10 - S42.252D) 03/31/2024 Closed displaced fracture of greater tuberosity of left humerus with routine healing, subsequent encounter (ICD-10 - S42.252D) 04/05/2024 Closed displaced fracture of greater tuberosity of left humerus with routine healing, subsequent encounter (ICD-10 - S42.252D) 04/14/2024 Closed displaced fracture of greater tuberosity of left humerus with routine healing, subsequent encounter (ICD-10 - S42.252D) 12/24/2023 Pain in left shoulder (ICD-10 - M25.512) 02/04/2024 Closed displaced fracture of greater tuberosity of left humerus with routine healing, subsequent encounter (ICD-10 - S42.252D) 03/29/2024 Closed displaced fracture of greater tuberosity of left humerus with routine healing, subsequent encounter (ICD-10 - S42.252D) 12/23/2023 Closed displaced fracture of greater tuberosity of left humerus with routine healing, subsequent encounter (ICD-10 - S42.252D) - see above plan - Closed fracture care initiated on 11/18/23 03/02/2024 Closed displaced fracture of greater tuberosity of left humerus with routine healing, subsequent encounter (ICD-10 - S42.252D) - see above plan - Closed fracture care initiated on 11/18/23 12/31/2023 Pain in left shoulder (ICD-10 - M25.512) 12/29/2023 Pain in left shoulder (ICD-10 - M25.512) 01/05/2024 Pain in left shoulder (ICD-10 - M25.512) 02/02/2024 Pain in left shoulder (ICD-10 - M25.512) 03/08/2024 Pain in left shoulder (ICD-10 - M25.512) 03/10/2024 Pain in left shoulder (ICD-10 - M25.512) 04/12/2024 Pain in left shoulder (ICD-10 - M25.512) 01/07/2024 Pain in left shoulder (ICD-10 - M25.512) 01/14/2024 Pain in left shoulder (ICD-10 - M25.512) 01/19/2024 Pain in left shoulder (ICD-10 - M25.512) 01/21/2024 Pain in left shoulder (ICD-10 - M25.512) 02/09/2024 Pain in left shoulder (ICD-10 - M25.512) 02/11/2024 Pain in left shoulder (ICD-10 - M25.512) 02/16/2024 Pain in left shoulder (ICD-10 - M25.512) 03/22/2024 Pain in left shoulder (ICD-10 - M25.512) 03/31/2024 Pain in left shoulder (ICD-10 - M25.512) 04/05/2024 Pain in left shoulder (ICD-10 - M25.512) 04/14/2024 Pain in left shoulder (ICD-10 - M25.512) 02/04/2024 Pain in left shoulder (ICD-10 - M25.512) 03/29/2024 Pain in left shoulder (ICD-10 - M25.512) 11/25/2023 Other 12/24/2023 Other Certification of Medical Necessity: It will be understood that the treatment plan mentioned above is certified medically necessary by the documenting therapist and referring physician in this report. Unless the physician indicates otherwise through written correspondence with our office, all further referrals will act as certification of medical necessity on the treatment plan indicated above. Thank you for this referral. If you have any questions regarding this plan of care, please contact me at . Please sign and return: Fax#: I certify the need for these services furnished under this plan of treatment and while under my care. __ I have no revisions to the plan of care __ Revise the plan of care as follows Physician Signature Date: Time: 12/29/2023 Other 02/04/2024 Other Certification of Medical Necessity: It will be understood that the treatment plan mentioned above is certified medically necessary by the documenting therapist and referring physician in this report. Unless the physician indicates otherwise through written correspondence with our office, all further referrals will act as certification of medical necessity on the treatment plan indicated above. Thank you for this referral. If you have any questions regarding this plan of care, please contact me at . Please sign and return: Fax#: I certify the need for these services furnished under this plan of treatment and while under my care. __ I have no revisions to the plan of care __ Revise the plan of care as follows Physician Signature Date: Time: 02/09/2024 Other Certification of Medical Necessity: It will be understood that the treatment plan mentioned above is certified medically necessary by the documenting therapist and referring physician in this report. Unless the physician indicates otherwise through written correspondence with our office, all further referrals will act as certification of medical necessity on the treatment plan indicated above. Thank you for this referral. If you have any questions regarding this plan of care, please contact me at . Please sign and return: Fax#: I certify the need for these services furnished under this plan of treatment and while under my care. __ I have no revisions to the plan of care __ Revise the plan of care as follows Physician Signature Date: Time: 02/11/2024 Other Certification of Medical Necessity: It will be understood that the treatment plan mentioned above is certified medically necessary by the documenting therapist and referring physician in this report. Unless the physician indicates otherwise through written correspondence with our office, all further referrals will act as certification of medical necessity on the treatment plan indicated above. Thank you for this referral. If you have any questions regarding this plan of care, please contact me at . Please sign and return: Fax#: I certify the need for these services furnished under this plan of treatment and while under my care. __ I have no revisions to the plan of care __ Revise the plan of care as follows Physician Signature Date: Time: 02/16/2024 Other Certification of Medical Necessity: It will be understood that the treatment plan mentioned above is certified medically necessary by the documenting therapist and referring physician in this report. Unless the physician indicates otherwise through written correspondence with our office, all further referrals will act as certification of medical necessity on the treatment plan indicated above. Thank you for this referral. If you have any questions regarding this plan of care, please contact me at . Please sign and return: Fax#: I certify the need for these services furnished under this plan of treatment and while under my care. __ I have no revisions to the plan of care __ Revise the plan of care as follows Physician Signature Date: Time: 03/08/2024 Other Certification of Medical Necessity: It will be understood that the treatment plan mentioned above is certified medically necessary by the documenting therapist and referring physician in this report. Unless the physician indicates otherwise through written correspondence with our office, all further referrals will act as certification of medical necessity on the treatment plan indicated above. Thank you for this referral. If you have any questions regarding this plan of care, please contact me at . Please sign and return: Fax#: I certify the need for these services furnished under this plan of treatment and while under my care. __ I have no revisions to the plan of care __ Revise the plan of care as follows Physician Signature Date: Time: 03/10/2024 Other Certification of Medical Necessity: It will be understood that the treatment plan mentioned above is certified medically necessary by the documenting therapist and referring physician in this report. Unless the physician indicates otherwise through written correspondence with our office, all further referrals will act as certification of medical necessity on the treatment plan indicated above. Thank you for this referral. If you have any questions regarding this plan of care, please contact me at . Please sign and return: Fax#: I certify the need for these services furnished under this plan of treatment and while under my care. __ I have no revisions to the plan of care __ Revise the plan of care as follows Physician Signature Date: Time: 03/22/2024 Other 03/29/2024 Other Certification of Medical Necessity: It will be understood that the treatment plan mentioned above is certified medically necessary by the documenting therapist and referring physician in this report. Unless the physician indicates otherwise through written correspondence with our office, all further referrals will act as certification of medical necessity on the treatment plan indicated above. Thank you for this referral. If you have any questions regarding this plan of care, please contact me at . Please sign and return: Fax#: I certify the need for these services furnished under this plan of treatment and while under my care. __ I have no revisions to the plan of care __ Revise the plan of care as follows Physician Signature Date: Time: 03/31/2024 Other Certification of Medical Necessity: It will be understood that the treatment plan mentioned above is certified medically necessary by the documenting therapist and referring physician in this report. Unless the physician indicates otherwise through written correspondence with our office, all further referrals will act as certification of medical necessity on the treatment plan indicated above. Thank you for this referral. If you have any questions regarding this plan of care, please contact me at . Please sign and return: Fax#: I certify the need for these services furnished under this plan of treatment and while under my care. __ I have no revisions to the plan of care __ Revise the plan of care as follows Physician Signature Date: Time: 04/05/2024 Other Certification of Medical Necessity: It will be understood that the treatment plan mentioned above is certified medically necessary by the documenting therapist and referring physician in this report. Unless the physician indicates otherwise through written correspondence with our office, all further referrals will act as certification of medical necessity on the treatment plan indicated above. Thank you for this referral. If you have any questions regarding this plan of care, please contact me at . Please sign and return: Fax#: I certify the need for these services furnished under this plan of treatment and while under my care. __ I have no revisions to the plan of care __ Revise the plan of care as follows Physician Signature Date: Time: 04/12/2024 Other Certification of Medical Necessity: It will be understood that the treatment plan mentioned above is certified medically necessary by the documenting therapist and referring physician in this report. Unless the physician indicates otherwise through written correspondence with our office, all further referrals will act as certification of medical necessity on the treatment plan indicated above. Thank you for this referral. If you have any questions regarding this plan of care, please contact me at . Please sign and return: Fax#: I certify the need for these services furnished under this plan of treatment and while under my care. __ I have no revisions to the plan of care __ Revise the plan of care as follows Physician Signature Date: Time: 04/14/2024 Other Certification of Medical Necessity: It will be understood that the treatment plan mentioned above is certified medically necessary by the documenting therapist and referring physician in this report. Unless the physician indicates otherwise through written correspondence with our office, all further referrals will act as certification of medical necessity on the treatment plan indicated above. Thank you for this referral. If you have any questions regarding this plan of care, please contact me at . Please sign and return: Fax#: I certify the need for these services furnished under this plan of treatment and while under my care. __ I have no revisions to the plan of care __ Revise the plan of care as follows Physician Signature Date: Time: PLAN OF TREATMENT Next Appt Details Provider Name:Donovan Hare, 02:30:00 PM, [address] [place] [address], [place], [address], Insurance Providers Payer Name Payer Address Payer Phone Subscriber Number Group Number Insured Name Patient Relationship to Insured Coverage Start Date Coverage End Date [employer] [address] [address] [place] [phone] [id number] Milagros Sawyer Self - patient is the insured 4 MEDICAL (GENERAL) HISTORY Medical History History ICD Code coronary artery disease: No High Cholesterol Level: No osteoarthritis: No rheumatoid arthritis: Yes taking blood thinners: Yes Surgical History Surgery Date(Month/Year) tonsillectomy tubal ligation lumpectomy
--- OUTSIDE RECORDS SUMMARY | 2024-04-22 03:59 | XMS_ITS ---
Author Organization [facility] Address [address] [place] [id number] Care Team Providers Care Restorative Coordinator Name Role Phone Lawson Lantigua Unavailable [phone] Jose Gao DPM Unavailable Unavailable Migration, Provider Unavailable Unavailable Allergies No Known Allergies REASON FOR VISIT [facility] Medications Medication SIG (Take, Route, Frequency, Duration) Notes Start Date End Date Status Omeprazole 40 mg oral for 90 *Pick strength- form from [facility] for eRX* 02/13/2021 Active Vitamin D3 10 MCG (400 UNIT) Oral for 0 01/28/2022 Active Imbruvica 420 MG Oral for 0 01/28/2022 A ctive losartan-hydrochlorot hiazide 100-12.5 mg oral for 90 *Reorder from [facility] for eRx and Interaction Alerts* 04/16/2021 Active Multivitamin - Oral for 0 01/28/2022 Act martita Levothyroxine 125 mcg oral for 90 *Reorder f rom [facility] for eRx and Interaction Alerts* 02/25/2021 Active Encounters Encounter Location Date Provider Diagnosis [facility] [address] [place] [id number] 10/03/2023 Provider Migration Plan Of Treatment No Information Progress Notes * ALEX TERRA[birth year]ASDOB:[birth year] (83 yo F)Acc No.[id number]:10/03/2023 Patient:?ALEX TERRAZAS :1940???Age:82 Y???Sex:Female Address:[address] [place] [address] Subjective: * Chief Complaints: * ???[facility] * Medical History:? * Surgical History:? * Hospitalization/Major Diagno stic Procedure:? * Medications:?TakingLevothyro xine 125 mcg tablet oral , Notes to Pharmacist: *Reorder from [facility] for eRx and Interaction Alerts*Omeprazole 40 mg capsule,delayed release(DR/EC) oral , Notes to Pharmacist: *Pick strength-form from [facility] for eRX*Vitamin D3 10 MCG (400 UNIT) Tablet Oral Multivitamin - Tablet Oral Imbruvica 420 MG Tablet Oral losartan-hydrochlorothiazide 100-12.5 mg tablet oral , Notes to Pharmacist: *Reorder from [facility] for eRx and Interaction Alerts*Taking Levothyroxine 125 mcg tablet oral , Notes to Pharmacist: *Reorder from [facility] for eRx and Interaction Alerts*Taking Omeprazole 40 mg capsule,delayed release(DR/EC) oral , Notes to Pharmacist: *Pick strength-form from [facility] for eRX*Taking Vitamin D3 10 MCG (400 UNIT) Tablet Oral Taking Multivitamin - Tablet Oral Taking Imbruvica 420 MG Tablet Oral Taking losartan-hydrochlorothiazide 100-12.5 mg tablet oral , Notes to Pharmacist: *Reorder from [facility] for eRx and Interaction Alerts* * Allergies:?N.K.D.A. Objective: * Vitals:? * Physical Examination:? Assessment: Plan: * Treatment: * Procedure Codes:? * * Date:?
--- OUTSIDE RECORDS SUMMARY | 2024-04-22 03:59 | XMS_ITS ---
Author Organization [facility] Address [address] [facility] [address] [place] [address] Care Team Providers Care Spanish Linguist Name Role Phone Donovan Manuel Unavailable [phone] DONOVAN MANUEL MD Unavailable Unavailable Sara Merino Unavailable REASON FOR VISIT Patient reports she missed her appt last week due to arthritis flare up. Feeling better today but still reports of L shoulder pain and stiffness at end range., Difficulty with OH reaching, lifting orcarrying, pushing or pulling, and reaching behind her back. SOCIAL HISTORY Sex Assigned At : Social History Observation Description Sex Assigned At Female Encounters Encounter Location Date Provider Diagnosis [facility] [address] [address] [place] [address] 04/12/2024 Sara Merino Closed 2-part displaced fracture of surgical neck of left humerus with routine healing S42.222D ; Closed displaced fracture of greater tuberosity of left humerus with routine healing, subsequent encounter S42.252D and Pain in left shoulder M25.512 ASSESSMENTS Encounter Date Diagnosis Assessment Notes Treatment Notes Treatment Clinical Notes 04/12/2024 Closed 2-part displaced fracture of surgical neck of left humerus with routine healing (ICD-10 - S42.222D) 04/12/2024 Closed displaced fracture of greater tuberosity of left humerus with routine healing, subsequent encounter (ICD-10 - S42.252D) 04/12/2024 Pain in left shoulder (ICD-10 - M25.512) 04/12/2024 Other Certification of Medical Necessity: It [...] Physician Signature Date: Time: PLAN OF TREATMENT Treatment Notes Assessment Notes Other Certification of Medical Necessity: It will [...] care as follows Physician Signature Date: Time: Next Appt Details Follow Up: 2 - 3 Days, Reaso n: Provider Name:Donovan Mar, 02:30:00 PM, [address] [place] [address], [place] [address], [place], [address], Procedure Notes * Category Sub-Category Detail Notes Physical Therapy Treatment P [facility] Reference Plan: Hot Packs , Electrical Simul ation , Cold Pack , Therapeutic exercise , Manual Therapy , Upper body exercise , Neuromuscular Education , Therapeutic Activities Progress Notes * Examination Category Sub-Category Detail Notes OBSERVATION BODY TYPE: Mesomorph GENERAL APPEARANCE: Pleasant, nourished, alert oriented x3, in no acute distress LEFT SHOULDER: RANGE OF MOTION: Active: : ?Flexion: AROM: 110 degrees PROM: 120 degrees ?Abduction: AROM: 90 degrees PROM: 95 degrees ?ER: AROM: 35 degrees PROM: 40 degrees ?IR: AROM: 40 degrees PROM: 45 degrees STRENGTH: Shoulder Flexion: 3-/5 Shoulder Extension: 3-/5 Shoulder Abduction: 3-/5 Shoulder Adduction: 3-/5 Shoulder External Rotation: 3-/5 Shoulder Internal Rotation: 3-/5 Shoulder Scaption: 3-/5 SPECIAL TESTS: N/A History and Physical Notes * HPI (History of Present Illness) Category Sub-Category Detail Notes *PRIOR LEVEL OF FUNCTION* CARRYING, MOVING, & HANDLING OBJECTS IADLS: independent HAND & ARM USE: independent Quick DASH Quick DASH 1. Open a tight or new jar.: 3 Moderate Difficulty 2. Do heavy film touch up inspector (e.g., wash fay, floors).: 3 Moderate Difficulty 3. Carry a shopping bag or briefcase.: 3 Moderate Difficulty 4. Wash your back.: 3 Moderate Difficult y 5. Use a knife to cut food.: 2 Mild Diff iculty 6. Recreational activities i n which you take some force or impact through your arm, shoulder or hand (e.g., golf, hammering, tennis, etc.).: 3 Moderate Difficulty 7. During the past week, to what extent has your arm, shoulder or hand problem interfered with your normal social activities with family, friends, neighbors or groups?: 2 Slightly 8. During the past week, wer e you limited in your work or other regular daily activities as a result of your arm, shoulder or hand problem?: 3 Moderately Limited 9. Please rate the severity of your Arm, Shoulder or Hand pain in the last week.: 2 Mild 10. Please rate the severity of the Tingling (pins and needles) in your Arm, Shoulder or Hand in the past week?: 2 Mild 11. During the past week, ho w much difficulty have you had sleeping because of the pain in your Arm, Shoulder or Hand?: 2 Mild Difficulty Total Score: Functional: 38.6% *INITIAL INTAKE: Accompanied By: self *CURRENT FUNCTIONAL LIMITATIONS* CARRYING MOVING & HANDLING OBJECTS Custom:: modified independence *PATIENT'S GOAL* Patient states: imrpove L UE m obility, strength, be able to perform self care, ADLs, and house work without difficulty.
--- OUTSIDE RECORDS SUMMARY | 2024-04-22 03:59 | XMS_ITS ---
Author Organization [facility] Address [address] [place] [id number] Care Team Providers Care Clipper Operator Name Role Phone Lawson Lantigua Unavailable [phone] Jose Gao DPM Unavailable Unavailable Migration, Provider Unavailable Unavailable REASON FOR VISIT [facility] Encounters Encounter Location Date Provider Diagnosis [facility] [address] [place] [id number] 10/02/2023 Provider Migration Plan Of Treatment No Information Progress Notes * ALEX TERRAZASDOB:[birth year] (83 yo F)Acc No.[id number]:10/02/2023 Patient:?ALEX TERRAZAS :1940???Age:82 Y???Sex:Female Address:[address] [place] [address], [place] [address] Subjective: * Chief Complaints: * ???[facility] * Medical History:? * Surgical History:? * Hospitalization/Major Diagno stic Procedure:? * Medications:? Objective: * Vitals:? * Physical Examination:? Assessment: Plan: * Treatment: * Procedure Codes:? * * Date:?
--- OUTSIDE RECORDS SUMMARY | 2024-04-22 03:59 | XMS_ITS | Encounter Summary ---
Author Organization [facility] Address [address] [place] [address] Care Team Providers Care Clinical Application Manager Name Role Phone César Lantigua MD Primary Care Provider [phone] Reason for Visit * Reason Comments Other TYPE AND CROSS MATCH Encounter Details Date Type Department Care Team (Latest Contact Info) Description 03/20/2022 2:30 PM EDT - 03/20/2022 11:59 PM EDT Hospital Encounter [facility] [address] [place] [address] Anemia, unspecified type [D64.9] Discharge Disposition: Home or Self Care Social History Tobacco Use Types Packs/Day Years Used Date Smoking Tobacco: Never Assessed Sex and Gender Information Value Date Recorded Sex Assigned at Not on file Gender Identity Not on file Sexual Orientation Not on file documented as of this encounter Medications at Time of Discharge Medication Sig Dispensed Refills Start Date End Date IMBRUVICA 420 mg tablet Take 420 mg by mouth daily 0 03/05/2022 losartan-hydroCHLOROthiazi de (HYZAAR) 100-12.5 mg tablet Take 1 tablet by mouth daily 0 03/18/2022 documented as of this encounter Progress Notes * Bre Louise RN - 03/20/2022 2:30 PM EDT Reason for Visit: No chief complaint on file. There were no vitals filed for this visit. Medications Given - No data to display Infusion Visit Type: TYPE AND CROSS MATCH Treatment tolerated: Yes Chair area free from [...] Infusion On track( 023 3:19 PM EST) Bre Morley, RN Note: Goal: Free from treatment reactions Interventions: Baseline assessment , Baseline vital signs & as needed, and Assess for reaction documented as of this encounter Procedures Procedure Name Priority Date/Time Associated Diagnosis Comments ABO GROUPING AND RH TYPING STAT 03/20/2022 3:04 PM EDT Anemia, unspecified type HC COMPATIBILITY ELECTRONIC Routine 03/20/2022 3:01 PM EDT Anemia, unspecified type TYPE AND SCREEN STAT 03/20/2022 3:01 PM EDT Anemia, unspecified type documented in this encounter Results * ABO Confirmation (03/20/2022 3:04 PM EDT) ABO Typing A 03/20/2022 4:19 PM EDT [facility] RH Type POS 03/20/2022 4:19 PM EDT [facility] Blood Non-Lab Draw / Unknown 03/20/2022 3:04 PM EDT 03/20/2022 3:12 PM EDT Comment:Add'l Desc: Elania Nguyen MD BLOOD BANK TEST SWAPNA BOWLES [facility] [address] [place] [address], [facility] [address] [place] [address] * Type and screen (03/20/2022 3:01 PM EDT) ABO Typing A 03/20/2022 4:19 PM EDT [facility] RH Type POS 03/20/2022 4:19 PM EDT [facility] Antibody Screen NEG 4:19 PM EDT [facility] Type & Screen Expiration 03/23/2022 23:59 03/20/2022 4:19 PM EDT [facility] Blood Non-Lab Draw / Unknown 03/20/2022 3:01 PM EDT 03/20/2022 3:12 PM EDT Comment:Add'l Desc: Elaina Nguyen MD BLOOD BANK TEST ORDE JELENA [facility] [address] [place] [address], [facility] [address] [place] [address] documented in this encounter Visit Diagnoses Diagnosis Anemia, unspecified type documented in this encounter Care Teams Clinical Application Manager Relationship Specialty Start Date End Date César Lantigua MD [address] [place] [address] PCP - General Family Medicine 03/20/22 documented as of this encounter
--- OUTSIDE RECORDS SUMMARY | 2024-04-22 03:59 | XMS_ITS ---
Author Organization [facility] Address [address] [address] Care Team Providers Care Suture Gauger Name Role Phone Donovan Manuel Unavailable [phone] DONOVAN MANUEL MD Unavailable Unavailable Sara Merino Unavailable [phone] REASON FOR VISIT Patient reports she feels a little better today, less pain to L shoulder with movement. States somedays are better than others. SOCIAL HISTORY Sex Assigned At : Social History Observation Description Sex Assigned At Female Encounters Encounter Location Date Provider Diagnosis [facility] [id number] [place] [address] 04/14/2024 Sara Merino Closed 2-part displaced fracture of surgical neck of left humerus with routine healing S42.222D ; Closed displaced fracture of greater tuberosity of left humerus with routine healing, subsequent encounter S42.252D and Pain in left shoulder M25.512 ASSESSMENTS Encounter Date Diagnosis Assessment Notes Treatment Notes Treatment Clinical Notes 04/14/2024 Closed 2-part displaced fracture of surgical neck of left humerus with routine healing (ICD-10 - S42.222D) 04/14/2024 Closed displaced fracture of greater tuberosity of left humerus with routine healing, subsequent encounter (ICD-10 - S42.252D) 04/14/2024 Pain in left shoulder (ICD-10 - M25.512) 04/14/2024 Other Certification of Medical Necessity: It [...] Details Follow Up: 2 - 3 Days, Jon n: Provider Name:Donovan Manuel, 02:30:00 PM, 4 [facility] [address], [place], [address], Procedure Notes * Category Sub-Category Detail Notes Physical Therapy Treatment P [facility] Reference Plan: Hot Packs , Electrical [...] jar.: 3 Moderate Difficulty 2. Do heavy executive chef assistant (e.g., wash fay, floors).: 3 Moderate Difficulty [...]
--- OUTSIDE RECORDS SUMMARY | 2024-04-22 04:00 | XMS_ITS | Patient Health Record ---
Author Organization [facility] Address [address] [place] [id number] Care Team Providers Care Gre Instructor Name Role Phone Lawson Lantigua Unavailable [phone] Jose Gao DPM Unavailable Unavailable Migration, Provider Unavailable Unavailable Allergies No Known Allergies Reason For Referral No Information Medications Medication SIG (Take, Route, Frequency, Duration) Notes Start Date End Date Status Omeprazole 40 mg oral for 90 *Pick strength- form from [employer] for eRX* 02/13/2021 Active Vitamin D3 10 MCG (400 UNIT) Oral for 0 01/28/2022 Active Levothyroxine 125 mcg oral for 90 *Reorder f rom [employer] for eRx and Interaction Alerts* 02/25/2021 Active Imbruvica 420 MG Oral for 0 01/28/2022 A ctive losartan-hydrochlorot hiazide 100-12.5 mg oral for 90 *Reorder from [employer] for eRx and Interaction Alerts* 04/16/2021 Active Multivitamin - Oral for 0 01/28/2022 Act martita Encounters Encounter Location Date Provider Diagnosis [facility] [address] [place] [id number] 10/02/2023 Provider Migration [facility] [address] [place] [phone] 10/03/2023 Provider Migration Plan Of Treatment No Information Insurance Providers Payer Name Payer Address Payer Phone Subscriber Number Group Number Insured Name Patient Relationship to Insured Coverage Start Date Coverage End Date [employer] [address] [address] [place] [address] [id number] ALEX TERRAZAS Self - patient is the insured 2
[2024-04-22 04:04] LABS: Bilirubin Negative (Negative); Blood Small (Negative); Clarity Clear (Clear); Glucose Negative (Negative); Ketones Negative (Negative); Leukocyte Esterase Negative (Negative); Nitrite Negative (Negative); Specific Gravity 1.025 (1.005-1.025); Urobilinogen 0.2 mg/dL (Up to 0.2); pH 5.5 (5-8)
[2024-04-22] MEDS: Normal Saline 1,000 ML 100 ML IV (04:04)
[2024-04-22 04:08] LABS: Bacteria Rare HPF (Negative); C & S Indicated? No; Casts Negative LPF (Negative); Crystals Negative HPF (Negative); Epithelial Cells Few HPF (Negative); Mucus Negative (Negative); WBC Negative HPF (0-5)
== END 2024-04-22 07:49 | disposition short-term general hospital (02) ==
PROVIDERS: Emergency Provider Emergency Medicine
DX: S72.001A Fracture of unspecified part of neck of right femur, initial encounter for closed fracture (principal); W10.9XXA Fall (on) (from) unspecified stairs and steps, initial encounter
CPT/HCPCS: 51702; 73552; 80053; 85027; 93005; 96361; 96365; 96375; 99285; 71045; 73502; 81003; 81015; 93010; J0131; J2270; J2405